=== PATIENT | female | born 1980 | race Caucasian/White ===

== ENCOUNTER 2016-05-14 17:34 | Emergency (ER) | payer BC ==
[2016-05-14 18:12] VITALS: RESP 16; TEMP 99
[2016-05-14] MEDS ORDERED: NS 1,000 ML IV ONE (18:14)
[2016-05-14] MEDS ORDERED: ONDANSETRON 4 MG/2 ML VIAL IVP ONE (18:14)
[2016-05-14] MEDS ORDERED: HYOSCYAMINE SULFATE 0.125 MG TAB PO ONE (18:15)
[2016-05-14 18:33] LABS: COLOR YELLOW; LEUKOCYTE ESTERASE,URINE NEGATIVE (NEGATIVE); NITRITE,URINE NEGATIVE (NEGATIVE); PH,URINE 7.5 (5.0-7.5)
[2016-05-14 18:51] LABS: % IMMATURE GRANULYOCYTES 0.2 % (0.0-1.1); ABSOLUTE IMMATURE GRANULOCYTES 0.01 10^3/uL (0.00-0.10); ADD DIFF? NO; ADD MORPH? NO; ADD SCAN? NO; ATYPICAL LYMPHOCYTE FLAG 0 (0-99); FRAGMENT RBC FLAG 0 (0-99); HEMATOCRIT 39.4 % (38.0-47.0); HEMOGLOBIN 13.7 g/dL (12.6-16.3); LEFT SHIFT FLG 0 (0-99); LIPEMIA HEMOLYSIS FLAG 90 (0-99); MEAN CELL HEMOGLOBIN 32.5 pg (27.9-34.1); MEAN CELL HEMOGLOBIN CONCENTR. 34.8 g/dL (32.4-36.7); MEAN CELL VOLUME 93.4 fL (81.5-99.8); MEAN PLATELET VOLUME 10.7 fL (8.7-11.7); PLATELET CLUMPS FLAG 0 (0-99); PLATELET COUNT 173 10^3/uL (150-400); RED BLOOD CELL COUNT 4.22 10^6/uL (4.18-5.33); RED CELL DISTRIBUTION WIDTH 12.2 % (11.5-15.2)
[2016-05-14 19:07] LABS: ALANINE AMINOTRANSFERASE 36 IU/L (9-52); ALKALINE PHOSPHATASE 55 IU/L (38-126); ANION GAP 15 mEq/L (8-16); ASPARTATE AMINOTRANSFERASE 22 IU/L (14-46); BILIRUBIN,TOTAL 0.7 mg/dL (0.1-1.4); CALCIUM 8.5 mg/dL (8.5-10.4); CARBON DIOXIDE 24 mEq/l (22-31); CHLORIDE 101 mEq/L (97-110); CREATININE 0.7 mg/dL (0.6-1.0); GLOMERULAR FILTRATION RATE > 60; GLUCOSE 84 mg/dL (70-100); POTASSIUM 4.1 mEq/L (3.5-5.2); SODIUM 140 mEq/L (134-144); TOTAL PROTEIN 7.1 g/dL (6.3-8.2)
--- NOTE | 2016-05-14 19:40 | UCPHY ---
H & P Patient Type: New Chief Complaint Nursing Narrative: Pt. states arrived from [place] this past Wed for conference. Last 2 days nausea with 1 episode of liquid stool this am and 1 nml this afternoon. Bilat upper abd sharp stabbing pain started aprox 1630 today. Time Seen by Provider: 05/14/16 17:57 HPI/ROS: This patient complains of a 2 day history of crampy abdominal discomfort primarily above the umbilicus associated with nausea and 1 episode of diarrhea this morning. At times the abdominal pain becomes sharp and increases but with movement. No other exacerbating factors. Peak intensity 7/10, currently 5/10. She ate some spicy [place] food prior to the onset of the symptoms and wonders if this may be contributing. She also reports that she feels a bit uneasy as she is visiting [place] from [place] for a conference. ROS: No fevers. No other constitutional symptoms. HEENT: No coryza or other cold symptoms. No sore throat. Pulmonary: No cough shortness of breath. Cardiovascular: No chest pain. No heart palpitations or lightheadedness. No leg swelling or calf pain. : No urinary symptoms GI: Nausea but no vomiting. She still tolerating p.o. intake. She has no blood in her stool. No dark tarry stools. She does report mild GERD symptoms intermittently over the past month. 10 point ROS is otherwise negative. Source: Patient Exam Limitations: No limitations - Personal History LMP (Females 10-55): IUD In Place - Medical/Surgical History PMH: Migraines. Depression. IUD Hx Asthma: No Hx Chronic Respiratory Disease: No Hx Diabetes: No Hx Cardiac Disease: No Hx Renal Disease: No Hx Cirrhosis: No Hx Alcoholism: No Hx HIV/AIDS: No Hx Splenectomy or Spleen Trauma: No Other PMH: Med hx-anxiety/depression,allergies-,migraines. Surg-c-sect - Family History Significant Family History: No pertinent family hx - Social History Smoking Status: Unknown if ever smoked Alcohol Use: Occasionally Drug Use: None Additional Social History: visiting from [place] - Physical Exam Exam: General Appearance: Alert, no distress. Eyes: Pupils equal and round no pallor or injection. ENT, Mouth: Mucous membranes moist. Respiratory: There are no retractions, lungs are clear to auscultation. Cardiovascular: Regular rate and rhythm. Gastrointestinal: Mildly obese. Hyperactive bowel sounds. Soft, mild diffuse upper belly tenderness with no guarding or rebound. No organomegaly. Back: No CVA tenderness Neurological: Alert with no focal deficits. Skin: Warm and dry, no rashes. Extremities are symmetrical, full range of motion. Psychiatric: Mood and affect are normal DIFFERENTIAL DIAGNOSIS: After history and physical exam differential diagnosis was considered for mild viral gastroenteritis, food intolerance, cholecystitis, hepatitis Constitutional: Initial Vital Signs Temperature (C) 37.2 C 05/14/16 18:00 Heart Rate 88 05/14/16 18:00 Respiratory Rate 16 05/14/16 18:00 Blood Pressure 128/89 H 05/14/16 18:00 O2 Sat (%) 96 05/14/16 18:00 O2 Delivery Mode Room Air Allergies/Adverse Reactions: Penicillins Allergy (Verified 05/14/16 18:06) Home Medications: Medication Instructions Recorded Flonase Nasal [place] 05/14/16 HYOSCYAMINE SULFATE [LEVSIN-SL] 0.125 - 0.25 mg SL Q6 PRN #20 05/14/16 tab.subl MIRENA 05/14/16 Maxalt PRN 05/14/16 Multi-Day Vitamins 05/14/16 Ondansetron Odt [Zofran Odt] 4 - 8 mg PO Q4PRN PRN #4 tab 05/14/16 Prozac 10 MG (*) 05/14/16 Zyrtec 05/14/16 Medical Decision Making ED Course/Re-evaluation: Zofran with resolution of nausea Levsin sublingual with improvement in her cramping discomfort. A review of her labs reveals a normal CBC, comp metabolic panel and urinalysis. HCG is negative. I suspect the patient has mild viral illness, IBS or food intolerance. I counseled regarding this. She is improved after treatment. - Data Points Laboratory Results: Laboratory Results 05/14/16 18:45 05/14/16 18:45 05/14/16 05/14/16 05/14/16 18:45 18:45 18:45 WBC 6.31 10^3/uL 10^3/uL (3.80-9.50) RBC 4.22 10^6/uL 10^6/uL (4.18-5.33) Hgb 13.7 g/dL g/dL (12.6-16.3) Hct 39.4 % % (38.0-47.0) MCV 93.4 fL fL (81.5-99.8) MCH 32.5 pg pg (27.9-34.1) MCHC 34.8 g/dL g/dL (32.4-36.7) RDW 12.2 % % (11.5-15.2) Plt Count 173 10^3/uL 10^3/uL (150-400) MPV 10.7 fL fL (8.7-11.7) Neut % (Auto) 83.7 % H % (39.3-74.2) Lymph % (Auto) 10.1 % L % (15.0-45.0) [place] % (Auto) 5.2 % % (4.5-13.0) Eos % (Auto) 0.5 % L % (0.6-7.6) Baso % (Auto) 0.3 % % (0.3-1.7) Nucleat RBC Rel Count 0.0 % % (0.0-0.2) Absolute Neuts (auto) 5.28 10^3/uL 10^3/uL (1.70-6.50) Absolute Lymphs (auto) 0.64 10^3/uL L 10^3/uL (1.00-3.00) Absolute Monos (auto) 0.33 10^3/uL 10^3/uL (0.30-0.80) Absolute Eos (auto) 0.03 10^3/uL 10^3/uL (0.03-0.40) Absolute Basos (auto) 0.02 10^3/uL 10^3/uL (0.02-0.10) Absolute Nucleated RBC 0.00 10^3/uL 10^3/uL (0-0.01) Immature Gran % 0.2 % % (0.0-1.1) Immature Gran # 0.01 10^3/uL 10^3/uL (0.00-0.10) Sodium 140 mEq/L mEq/L (134-144) Potassium 4.1 mEq/L mEq/L (3.5-5.2) Chloride 101 mEq/L mEq/L (97-110) Carbon Dioxide 24 mEq/l mEq/l (22-31) Anion Gap 15 mEq/L mEq/L (8-16) BUN 13 mg/dL mg/dL (7-23) Creatinine 0.7 mg/dL mg/dL (0.6-1.0) Estimated GFR > 60 Glucose 84 mg/dL mg/dL (70-100) Calcium 8.5 mg/dL mg/dL (8.5-10.4) Total Bilirubin 0.7 mg/dL mg/dL (0.1-1.4) AST 22 IU/L IU/L (14-46) ALT 36 IU/L IU/L (9-52) Alkaline Phosphatase 55 IU/L IU/L (38-126) Total Protein 7.1 g/dL g/dL (6.3-8.2) Albumin 4.0 g/dL g/dL (3.5-5.0) Beta HCG, Qual NEGATIVE Urine Color Urine Appearance Urine pH Ur Specific [place] Urine Protein Urine Ketones Urine Blood Urine Nitrate Urine Bilirubin Urine Urobilinogen Ur Leukocyte Esterase Ur Culture Indicated? Urine Glucose 05/14/16 18:30 WBC RBC Hgb Hct MCV MCH MCHC RDW Plt Count MPV Neut % (Auto) Lymph % (Auto) [place] % (Auto) Eos % (Auto) Baso % (Auto) Nucleat RBC Rel Count Absolute Neuts (auto) Absolute Lymphs (auto) Absolute Monos (auto) Absolute Eos (auto) Absolute Basos (auto) Absolute Nucleated RBC Immature Gran % Immature Gran # Sodium Potassium Chloride Carbon Dioxide Anion Gap BUN Creatinine Estimated GFR Glucose Calcium Total Bilirubin AST ALT Alkaline Phosphatase Total Protein Albumin Beta HCG, Qual Urine Color YELLOW Urine Appearance CLEAR Urine pH 7.5 (5.0-7.5) Ur Specific [place] 1.015 (1.002-1.030) Urine Protein NEGATIVE (NEGATIVE) Urine Ketones NEGATIVE (NEGATIVE) Urine Blood NEGATIVE (NEGATIVE) Urine Nitrate NEGATIVE (NEGATIVE) Urine Bilirubin NEGATIVE (NEGATIVE) Urine Urobilinogen 0.2 EU EU (0.2-1.0) Ur Leukocyte Esterase NEGATIVE (NEGATIVE) Ur Culture Indicated? NOT INDICATED (NI) Urine Glucose NEGATIVE (NEGATIVE) Medications Given: Discontinued Medications Hyoscyamine Sulfate (Levsin, Hyomax-Sl) 0.25 mg PO EDNOW ONE Stop: 05/14/16 18:16 Last Admin: 05/14/16 18:30 Dose: 0.25 mg Sodium Chloride (Ns) 1,000 mls @ 0 mls/hr IV ONCE ONE PRN Reason: Wide Open Stop: 05/14/16 18:15 Last Admin: 05/14/16 18:50 Dose: 1,000 mls Ondansetron HCl (Zofran) 4 mg IVP EDNOW ONE Stop: 05/14/16 18:15 Last Admin: 05/14/16 18:30 Dose: 4 mg Departure - Departure Disposition: Home, Routine, Self-Care Clinical Impression: Abdominal cramping, generalized, Nausea Condition: Good Instructions: Acute Diarrhea (ED), Abdominal Pain (ED) Additional Instructions: Diagnosis: Generalized abdominal cramping 2. Nausea 3. Diarrhea You labs tonight are normal. Plan: Drink plenty fluids Light diet until he feel improved Levsin if needed for cramping Zofran if needed for nausea Return for any significant worsening despite the treatment plan or go to the emergency department Referrals: BERTRAM BUCHANAN MD [Other] - As per Instructions Prescriptions: HYOSCYAMINE SULFATE [LEVSIN-SL] 0.125 - 0.25 mg SL Q6 PRN #20 tab.subl PRN Reason: Abdominal cramping Ondansetron Odt [Zofran Odt] 4 - 8 mg PO Q4PRN PRN #4 tab PRN Reason: Vomiting - PQRS PQRS Measurement: NA
[2016-05-15 00:10] VITALS: BP 118/78; PULSE 80; O2SAT 100
== END 2016-05-14 20:20 | disposition home or self-care (01) ==
LOC: CED 17:34
DX: R10.9 Unspecified abdominal pain (principal); R11.0 Nausea; Z88.0 Allergy status to penicillin
CPT/HCPCS: 80053-PO; 81003-PO; 84703-PO; 85025-PO; 96361-PO; 96374-PO; 99205-PO; G0463-PO; J2405